=== PATIENT | female | born 1970 | race Two or more races ===

== ENCOUNTER → 2018-01-12 | Outpatient (CLI) | payer OTHER ==
--- NOTE | 2018-01-12 14:23 | RAD ---
DATE: 01/12/2018 EXAM: DIGITAL DIAGNOSTIC BILATERAL HISTORY: Left breast pain, abnormal breast implant COMPARISON: None available This study was interpreted with the benefit of Computerized Aided Detection (CAD). The breast parenchyma is heterogeneously dense, which could reduce sensitivity of mammography. Breast parenchyma level C. FINDINGS: Routine and implant exclusion views of both breasts were obtained in CC and MLO projections. The left breast implant is deflated and collapsed compared to the right side. No breast mass is identified. Minimal benign type calcification is present. No suspicious microcalcifications are evident. IMPRESSION: 1. Deflated left breast implant. 2. No mammographic evidence of malignancy in either breast. BI-RADS CATEGORY: 2 BENIGN FINDING(S) RECOMMENDED FOLLOW-UP: 12M 12 MONTH FOLLOW-UP PQRS compliance statement: Patient information was entered into a reminder system with a target due date for the next mammogram. Mammography is a sensitive method for finding small breast cancers, but it does not detect them all and is not a substitute for careful clinical examination. A negative mammogram does not negate a clinically suspicious finding and should not result in delay in biopsying a clinically suspicious abnormality. "Our facility is accredited by the [employer] Mammography Program."
== END | disposition home or self-care (01) ==
LOC: MAMMO 12:31
DX: N64.4 Mastodynia (principal); Z98.82 Breast implant status
CPT/HCPCS: 77066